=== PATIENT | male | born 1950 | race Caucasian/White ===

== ENCOUNTER 2018-01-26 13:01 | Observation (INO) ==
[~2018-01-26 13:01] MED LIST: LIDOCAINE W/ SODIUM BICARB 0.5 ML SYR ONE; LIDOCAINE W/ SODIUM BICARB 0.5 ML SYR SUBD ONE; Lactated Ringers 1,000 ML PRIMARY IV ONE; Nasal Sanitizer POPSWAB ampule 3 AMP (Nozin) PREOP DOSE ENOS SCH; ceFAZolin Inj 2gm (Premix) 2 GM/50 ML BAG IV ONE
[2018-01-26] MEDS: Lactated Ringers 1,000 ML PRIMARY IV SCH ×3 (13:20→22:17)
[2018-01-26] MEDS ORDERED: ceFAZolin Inj 1 GM in Sodium Chloride 0.9% 100 ML IV ONE (13:56)
[2018-01-26] MEDS ORDERED: MIDAZOLAM 5 MG/1 ML ONE (14:05)
[2018-01-26] MEDS ORDERED: BUPIVACAINE 0.5% W/EPI MPF -30 ML VIAL IV ONE (14:06)
[2018-01-26] MEDS ORDERED: fentaNYL Inj 100 MCG/2 ML VIAL ONE ×2 (14:06→15:57)
[2018-01-26] MEDS ORDERED: Ropivacaine 0.2% VIAL 20 ML ONE (14:06)
[2018-01-26] MEDS ORDERED: DEXAMETHASONE PF 10 MG/1 ML VIAL ONE (14:10)
[2018-01-26] MEDS ORDERED: ROCURONIUM 10 MG/1 ML - 5 ML VIAL IVP ONE (14:35)
[2018-01-26] MEDS ORDERED: PROPOFOL 10 MG/1 ML (200 MG/20 ML) VIAL IV ONE (14:36)
[2018-01-26] MEDS ORDERED: ONDANSETRON 4 MG/2 ML VIAL IVP PRN ×2 (15:08→20:47)
[2018-01-26] MEDS ORDERED: oxyCODONE-ACETAMINOPHEN 5-325 TAB PO PRN ×2 (15:08→21:14)
[2018-01-26] MEDS ORDERED: LIDOCAINE MPF 2% - 5 ML (20 MG/1 ML) ONE (15:09)
[2018-01-26] MEDS ORDERED: EPINEPHrine Inj (1:1,000) 30mg/30ml vial ONE (15:33)
--- NOTE | 2018-01-26 18:38 | CRNA.PROCE ---
Nerve Block Documentation - - Safety Measures: Time Out Taken, Site Verified - - Type of Nerve Block Used: Right Interscalene Block (Analgesia block for shoulder scope.) Position for Nerve Block: Supine Moniters Used During Block: EKG, SPO2, NIBP Oxygen Supplemented: Yes Sedation Used - Enter Amount in Comment Field [ANES.SEDAT]: Midazolam (mg): Yes (2.5), Fentanyl (mcg): Yes (50 mcgs) Skin Prep Used: ChloroPrep (Twice) Draped: No Technique: Nerve Stimulator Nerve Block Needle Used: 40 mm ProBlk II Stimulation Hz: 1 Stimulation Staring mA: 1.8 Stimulation Ending mA: 0.6 Local Anesthetic - Enter Amt in Comment Field [ANES.LOCNB]: 0.5 % Bupivicaine with Epinephrine 1:200,000 (mL): Yes (25 ml in 2.0 ml increments), 0.2 % Ropivacaine (mL): Yes (20 ml in 1.5 ml increments) Additives to Nerve Blocks: Dexamethasone (mg): Yes (10 mg) - - PreOp Block : Time In: 14:10 PreOp Block : Time Out: 14:17 Anesthesia Time - Other Weight: 88.813 kg Height: 5 ft 10 in Body Mass Index (BMI): 28.0
--- NOTE | 2018-01-26 18:44 | CRNA.PROGR ---
Anesthesia Recovery Phase I - Post Anesthesia Evaluation Patient's Condition on Arrival in Phase I: Stable Patient's Condition on Arrival in Phase II: Stable Pain Level: 0
--- NOTE | 2018-01-26 18:46 | CRNA.PROGR ---
Anesthesia Time - Procedure/Recovery Time Start Date: 01/26/18 End Date: 01/26/18 (1500) Anesthesia : Time In: 15:00 Anesthesia : Time Out: 18:19 Anesthesia : Total Time: 199 - Block Time Start Date: 01/26/18 End Date: 01/26/18 PreOp Block : Time In: 14:10 PreOp Block : Time Out: 14:17 PreOp Block : Total Time: 7 - Total Anesthesia Time Total Anesthesia Time (minutes): 206 - Other Weight: 88.813 kg Height: 5 ft 10 in Body Mass Index (BMI): 28.0 Physical Status: P2 (Gerd) Anesthesia Type: General Anesthesia : LMA
[2018-01-26] MEDS: KETOROLAC 15 MG/1 ML VIAL IVP PRN (19:36)
[2018-01-26] MEDS ORDERED: KETOROLAC 15 MG/1 ML VIAL ONE (19:37)
[2018-01-26] MEDS ORDERED: FLUMAZENIL 0.1 MG/1 ML - 5 ML IVP ONE ×2 (20:00→20:10)
[2018-01-26] MEDS: FLUMAZENIL 0.1 MG/1 ML - 5 ML IVP PRN ×2 (20:09→20:20)
[2018-01-26] MEDS ORDERED: CALCIUM CARBONATE 500 MG (TUMS) CHEWABLE TABLET PO PRN (20:47)
[2018-01-26] MEDS ORDERED: IBUPROFEN 400 MG TABLET PO PRN (20:47)
[2018-01-26] MEDS ORDERED: diphenhydrAMINE 25 MG CAPSULE PO PRN (20:47)
[2018-01-26] MEDS ORDERED: BISACODYL 5 MG TABLET PO PRN (20:47)
[2018-01-26] MEDS ORDERED: MAG HYDROX/AL HYDROX/SIMETH 30 ML SUSP PO PRN (20:47)
[2018-01-26] MEDS ORDERED: Lactated Ringers 1,000 ML PRIMARY IV ONE (21:59)
[2018-01-26] MEDS: traMADol 50 MG TABLET PO SCH (22:05)
[2018-01-27] MEDS: KETOROLAC 15 MG/1 ML VIAL IVP PRN (01:34)
[2018-01-27] MEDS: Lactated Ringers 1,000 ML PRIMARY IV SCH (01:35)
[2018-01-27 04:51] VITALS: O2SAT 93
[2018-01-27] MEDS: oxyCODONE-ACETAMINOPHEN 5-325 TAB PO PRN ×2 (06:37→10:08)
--- NOTE | 2018-01-27 08:40 | OPS SHOULD ---
Diagnosis : Right Shoulder RTC Repair, Subacromial Decompression Referral Reason: Shoulder Cryo Cuff O: The patient was issued a cryo cuff for the right shoulder and instructed in its proper use and care. P: No further therapy is indicated at this time. The patient will begin outpatient physical therapy. CANDI
[2018-01-27] MEDS: traMADol 50 MG TABLET PO SCH (09:07)
[2018-01-27 09:09] VITALS: BP 125/84; RESP 20; TEMP 97.5
--- NOTE | 2018-01-27 12:52 | PTI REPORT ---
Thank you for the referral of Mitch Hernandez. He was seen on 01/27/18 for an inpatient evaluation status post right rotator cuff repair. SUBJECTIVE: The patient is a 67-year-old male who underwent a massive rotator cuff repair on the right shoulder yesterday. The patient states he is doing pretty well. He does have a pillow abduction brace in place and also a shoulder cryo cuff on the right side. The patient states that he has been having some difficulties prior to surgery with some shortness of breath and on room oxygen his oxygen saturation is varying between 90-91%. The patient did participate in occupational therapy evaluation prior to physical therapy. Our main concerns for the physical therapy evaluation are to make sure that the patient is safe to return home as he does live in a bi-level house in [place] with his and will have to be able to do approximately 15 stairs. PAST MEDICAL HISTORY: Past medical history can be found in the patient's medical record. OBJECTIVE FINDINGS: General observations: The patient was alert and oriented to setting upon PT arrival. The patient was sitting up in chair with shoulder abduction brace in place on the right side along with the shoulder cryo cuff. The patient did have an IV in place. We did have nursing cap the IV in order to be able to get up and move around. The patient's oxygen saturation was at 91% on room oxygen. Transfers: The patient was able to move from a seated to standing position with stand by assist x1 for safety. The patient was able to perform a stand to seated transfer safely and independently. Ambulation: A gait belt was placed around the patient and he ambulated x100 feet with stand by assist x1 for safety. The patient was then able to ascend and descend one flight of stairs with the hand railing on the left side as it is at home safely and independently. The patient ambulated x100 feet back to his room. ASSESSMENT: The patient has good rehab potential. Problem List: Patient is status post right RTC repair Short-Term Goals: To be met by discharge from inpatient: Patient will be able to ambulate 150 feet safely and independently and maintain oxygen saturation above 90%. Patient will be able to ascend and descent at least one flight of stairs safely and independently and maintain oxygen saturation above 90%. Long-Term Goals: To be met following discharge from inpatient: Patient will attend outpatient therapy secondary to his right shoulder rotator cuff repair. TREATMENT PLAN: Patient has met all goals for therapy. Nursing staff was notified that the patient is safe to return home from a mobility standpoint. He was able to maintain oxygen saturation above 90% on room air. INITIAL TREATMENT: Treatment today consisted of the initial evaluation. Following the evaluation the patient's cryo cuff was placed back on the right shoulder. Nursing staff was notified that the patient has met physical therapy goals. The patient's oxygen saturation was taken after he performed the stair activity. On room oxygen he was at 94%. MTDD
--- NOTE | 2018-01-27 22:06 | ORTHO.PROG ---
Last Taken Vital Signs: Vital Signs - Last Taken Temperature 97.5 F 01/27/18 09:00 Pulse Rate 103 H 01/27/18 09:00 Respiratory Rate 20 01/27/18 09:00 Blood Pressure 125/84 01/27/18 09:00 Pulse Ox 93 01/27/18 09:00 Subjective: Mr. Hernandez is doing well this morning. Shoulder pain is well-controlled. He states the block has worn off and he's able to feel his arm. Denies shortness of breath, chest pain, calf pain, swelling, fevers, chills, sweats, nausea, vomiting, numbness or tingling. O2 sat 93% on room air this morning and over night. No other concerns. Objective: Const: WDWN NAD, pleasant Resp: breathing non-labored Extrem: Abduction pillow in place right shoulder. Dressing clean, dry and intact right shoulder with op site intact. Mild post-surgical edema right shoulder to elbow; no erythema or drainage. Good right wrist ROM. Motor exam normal at the right elbow, wrist and fingers; did not assess shoulder strength on the right due to surgical repair. Radial pulse intact with good cap refill. Distal sensation intact. Assessment: Post op day 1, S/P Right shoulder ARCR, HI, A-biceps tenotomy; doing well. Oxygen saturation 93% RA Plan: Ok to discharge home when clears PT. Continue abduction pillow. No active shoulder ROM. Medications as written. Resume home medications. Start PT/OT this week for passive ROM as discussed. Keep incision covered, clean and dry. F/u 02/09/[address] [facility] [place] [facility] Reviewed with Dr. Beatty.
--- NOTE | 2018-01-28 14:27 | OT AM DAY ---
Diagnosis : Right RTC Repair AM - Occupational Therapy S: The patient is a 67-year-old male who ended up having a massive repair of his supraspinatus and infraspinatus. The patient has homes here in [place] and in [place]. In [place] they have a bi-level home. The patient was de- saturating last night so they kept him overnight. O: The patient was educated and instructed in shoulder do's and don'ts. The patient's was present during the session today and we went over how to dress self while following his rotator cuff precautions. The patient was issued a cryo cuff yesterday. Today he was instructed in its use and the cryo cuff was placed on patient. The patient's bandage had no drainage so this was not changed, but will be changed when he comes in for outpatient therapy. A: The patient and his were educated on shoulder precautions. The patient's brace was adjusted to fit him appropriately and he stated that it felt better after the session. He was asked to continue with the cryo cuff to reduce edema and inflammation. P: No further therapy is indicated at this time. The patient will start outpatient therapy. MTDD
== END 2018-01-27 11:18 | disposition home or self-care (01) ==
LOC: OR 13:01 → MED/SURG 13:01
PROVIDERS: ADMIT Orthopaedic Surgery Sports Medicine; ATTEND Orthopaedic Surgery Sports Medicine